=== PATIENT | male | born 1940 | race Caucasian/White ===

== ENCOUNTER 2017-05-31 16:35 | Inpatient (IN) | payer MEDICARE, BC ==
[~2017-05-31] VITALS: Ht 182.9 cm; Wt 100.9 kg
[2017-05-31] MEDS ORDERED: FOLI1TAB6 PO (17:13)
[2017-05-31] MEDS ORDERED: SIMV-8 PO (17:13)
[2017-05-31] MEDS ORDERED: BUME2TAB3 PO (17:13)
[2017-05-31] MEDS ORDERED: POTA10TA51 PO (17:13)
[2017-05-31] MEDS ORDERED: APIX5TAB PO (17:13)
[2017-05-31] MEDS ORDERED: METO2.5T11 PO (17:13)
[2017-05-31] MEDS ORDERED: CARV6.2551 PO (17:13)
[2017-05-31 17:29] LABS: Basophils # (auto) 0 uL; Basophils % (auto) 0.6 % (0.0-2.0); Eosinophils # (auto) 0.3 uL; Eosinophils % (auto) 4.2 % (0.0-7.0); Hematocrit 32.3 % (41.0-53.0); Hemoglobin 10.8 g/dL (13.5-17.5); Lymphocytes # (auto) 1.5 uL; Lymphocytes % (auto) 21.4 % (10.0-50.0); Mean Corpuscular Hemoglobin 32.7 pg (28.0-32.0); Mean Corpuscular Hgb Conc. 33.4 g/dL (32.0-36.0); Mean Corpuscular Volume 97.7 fL (80.0-100.0); Monocytes # (auto) 0.4 uL; Monocytes % (auto) 5.1 % (0.0-12.0); Neutrophils # (auto) 4.8 uL; Neutrophils % (auto) 68.7 % (37.0-80.0); Nucleated Red Blood Cells % 0.1 %; Platelet Count (auto) 156 10^3/uL (140-450); Red Blood Cells 3.31 10^6/uL (4.5-5.90); Red Cell Distribution Width 15.1 % (11.8-14.3)
[2017-05-31] MEDS ORDERED: DOPamine 1600MCG/ML D5W 250 ML IV ONE (17:30)
[2017-05-31 17:35] LABS: Urine Bacteria MANY /hpf (None Seen); Urine Blood 1+ /uL (Negative); Urine Mucus FEW (None Seen); Urine Specific Gravity 1.014 (1.001-1.035); Urine WBC 31 /hpf (0 - 3)
[2017-05-31 17:51] LABS: BUN/Creatinine Ratio 25.9; Magnesium 2.6 mg/dL (1.6-2.6)
[2017-05-31 17:55] LABS: Alcohol, Urine < 3.0 mg/dL (0-5); Amphetamine Screen, Urine NEGATIVE (NEGATIVE); Barbiturate Scree,Urine NEGATIVE (NEGATIVE); Benzodiazephine Screen, Urine NEGATIVE (NEGATIVE); Cannabinoid Screen, Urine NEGATIVE (NEGATIVE); Cocaine Screen, Urine NEGATIVE (NEGATIVE); Lactic Acid w/Reflex 5.5 mmol/L (0.4-2.0); Opiate Scree,Urine NEGATIVE (NEGATIVE); Phencyclidine Screen, Urine NEGATIVE (NEGATIVE)
[2017-05-31 17:56] LABS: Bilirubin, Total 0.7 mg/dL (0.2-1.0); INR 1.15 (0.9-1.15); Prothrombin Time 12.5 sec (9.37-12.3); Total Protein 6.6 g/dL (6.4-8.2)
[2017-05-31 18:01] LABS: Potassium 2.8 mmol/L (3.5-5.1)
[2017-05-31 18:15] VITALS: BP 93/47
[2017-05-31] MEDS: POTASSIUM CHL 20MEQ/50ML 50 ML IV SCH ×2 (18:28→20:26)
[2017-05-31] MEDS ORDERED: NOREPINEPHRINE 8 MG/250ML KIT 250 ML IV ONE (18:42)
[2017-05-31] MEDS: NOREPINEPHRINE 8 MG/250ML KIT 250 ML IV SCH (19:04)
[2017-05-31 20:00] VITALS: BP 111/53
[2017-05-31] MEDS ORDERED: MIDAZOLAM DRIP 50 mg/50mL 50 ML IV ONE (20:09)
[2017-05-31] MEDS: MIDAZOLAM DRIP 50 mg/50mL 50 ML IV SCH (20:20)
[2017-05-31] MEDS ORDERED: cefTRIAXone 1GM/10ml IVPUSH 10 ML IV ONE (21:30)
[2017-05-31] MEDS ORDERED: VANCOMYCIN PER PHARMACY 0 MG IV SCH (21:30)
[2017-05-31] MEDS ORDERED: MORPHINE SULF INJ 2 MG/ML SYRINGE 1ML IV PRN (21:30)
[2017-05-31] MEDS ORDERED: NITROGLYCERIN 0.4 MG SL TAB SL PRN (21:30)
[2017-05-31] MEDS ORDERED: VANCOMYCIN 1GM/250ML 250 ML IV SCH (21:45)
[2017-05-31 22:25] VITALS: BP 112/64
[2017-06-01] VITALS (13 sets, daily range): BP systolic 92–122; BP diastolic 45–71
[2017-06-01] MEDS ORDERED: BUMETANIDE (0.25MG/ML) 4 ML VIAL IV ONE (00:15)
[2017-06-01] MEDS: ACETAMINOPHEN 650 mg PER 20 mL UD GT PRN (01:46)
[2017-06-01 03:57] LABS: Basophils # (auto) 0.1 uL; Basophils % (auto) 0.5 % (0.0-2.0); Eosinophils # (auto) 0 uL; Eosinophils % (auto) 0.2 % (0.0-7.0); Hematocrit 29.4 % (41.0-53.0); Hemoglobin 10.1 g/dL (13.5-17.5); Lymphocytes # (auto) 0.6 uL; Lymphocytes % (auto) 4.5 % (10.0-50.0); Mean Corpuscular Hemoglobin 32.9 pg (28.0-32.0); Mean Corpuscular Hgb Conc. 34.3 g/dL (32.0-36.0); Mean Corpuscular Volume 95.9 fL (80.0-100.0); Monocytes # (auto) 1.6 uL; Monocytes % (auto) 12.3 % (0.0-12.0); Neutrophils # (auto) 10.5 uL; Neutrophils % (auto) 82.5 % (37.0-80.0); Platelet Count (auto) 137 10^3/uL (140-450); Red Blood Cells 3.07 10^6/uL (4.5-5.90); Red Cell Distribution Width 14.9 % (11.8-14.3); White Blood Cell 12.7 10^3/uL (4.4-10.8)
[2017-06-01] MEDS ORDERED: BUMETANIDE (0.25MG/ML) 4 ML VIAL IV SCH ×2 (06:00→10:00)
[2017-06-01 06:38] LABS: BUN/Creatinine Ratio 22.7; Calcium 8.4 mg/dL (8.5-10.1)
[2017-06-01 07:03] LABS: Potassium 2.6 mmol/L (3.5-5.1)
[2017-06-01] MEDS ORDERED: POTASSIUM CHL 10% (20 MEQ/15ML) 15ml ORAL SOLN GT ONE ×2 (07:15→19:00)
[2017-06-01] MEDS ORDERED: ENOXAPARIN SOD 120 MG/0.8 ML SYRINGE SC ONE (07:15)
[2017-06-01] MEDS ORDERED: VANCOMYCIN 1,250 MG in D5W 5% 250 ML IV SCH (09:00)
[2017-06-01] MEDS ORDERED: cefTRIAXone 1GM/10ml IVPUSH 10 ML IV SCH (09:00)
[2017-06-01] MEDS ORDERED: VANCOMYCIN 1,250 MG in D5W 5% 250 ML IV ONE (09:00)
[2017-06-01] MEDS ORDERED: APIXABAN 5 MG TAB PO SCH (10:00)
[2017-06-01] MEDS ORDERED: FUROSEMIDE 100 MG/10ML VIAL IV ONE (12:00)
[2017-06-01] MEDS ORDERED: SPIRONOLACTONE 25 MG TAB PO ONE (12:15)
[2017-06-01] MEDS ORDERED: DOPamine 1600MCG/ML D5W 250 ML IV SCH (14:00)
[2017-06-01] MEDS ORDERED: FUROSEMIDE INJECTION 250 MG in SODIUM CHL 0.9% 225 ML IV SCH (16:00)
[2017-06-01] MEDS ORDERED: HEPARIN SODIUM (PORCINE) 5000 UNITS/ML 1ML VIAL IV ONE (18:00)
[2017-06-01 18:06] LABS: Basophils # (auto) 0.1 uL; Basophils % (auto) 0.5 % (0.0-2.0); Eosinophils # (auto) 0.1 uL; Eosinophils % (auto) 0.5 % (0.0-7.0); Hematocrit 29.9 % (41.0-53.0); Hemoglobin 10.4 g/dL (13.5-17.5); Lymphocytes # (auto) 0.8 uL; Lymphocytes % (auto) 7.3 % (10.0-50.0); Mean Corpuscular Hemoglobin 33.1 pg (28.0-32.0); Mean Corpuscular Hgb Conc. 34.7 g/dL (32.0-36.0); Mean Corpuscular Volume 95.4 fL (80.0-100.0); Monocytes # (auto) 1.3 uL; Monocytes % (auto) 11.3 % (0.0-12.0); Neutrophils % (auto) 80.4 % (37.0-80.0); Nucleated Red Blood Cells % 0.2 %; Platelet Count (auto) 264 10^3/uL (140-450); Red Blood Cells 3.13 10^6/uL (4.5-5.90); Red Cell Distribution Width 15.1 % (11.8-14.3); White Blood Cell 11.1 10^3/uL (4.4-10.8)
[2017-06-01 18:20] LABS: INR 1.27 (0.9-1.15); Partial Thromboplastin Time 34.5 sec (22.64-33.71); Prothrombin Time 13.9 sec (9.37-12.3)
[2017-06-01] MEDS ORDERED: FUROSEMIDE INJECTION 100 MG in D5W 5% 90 ML IV SCH (19:00)
[2017-06-01] MEDS: PIPERACILLIN-TAZOB 2.25GM 50 ML IV SCH (19:13)
[2017-06-01] MEDS: NOREPINEPHRINE 8 MG/250ML KIT 250 ML IV SCH (19:14)
[2017-06-01] MEDS: DOPamine 1600MCG/ML D5W 250 ML IV SCH (19:14)
[2017-06-01 19:45] LABS: Creatinine, Urine 40 mg/dL (30.0-125.0); Sodium Urine 86 mmol/L (40-220)
[2017-06-01] MEDS: HEPARIN DRIP/D5W 100UNITS/ML 250 ML IV SCH (20:00)
[2017-06-01] MEDS: MIDAZOLAM DRIP 50 mg/50mL 50 ML IV SCH (20:38)
[2017-06-01] MEDS: LINEZOLID 600MG/300ML 300 ML IV SCH (22:00)
[2017-06-01] MEDS ORDERED: IBUPROFEN 100MG/5ML ORAL SUSP 100 MG/5 ML UD ONE (22:13)
[2017-06-01] MEDS ORDERED: IBUPROFEN 100MG/5ML ORAL SUSP 100 MG/5 ML UD GT ONE (22:45)
[2017-06-02] VITALS (53 sets, daily range): BP systolic 93–137; BP diastolic 39–72
[2017-06-02 03:43] LABS: Albumin 2.8 g/dL (3.4-5.0); BUN/Creatinine Ratio 21.4; Bilirubin, Total 1.5 mg/dL (0.2-1.0); Calcium 8.1 mg/dL (8.5-10.1); Magnesium 2.4 mg/dL (1.6-2.6); Total Protein 6.2 g/dL (6.4-8.2)
[2017-06-02 03:45] LABS: INR 1.28 (0.9-1.15); Partial Thromboplastin Time 32.1 sec (22.64-33.71)
[2017-06-02 03:46] LABS: Potassium 2.9 mmol/L (3.5-5.1)
[2017-06-02] MEDS ORDERED: HEPARIN SODIUM (PORCINE) 5000 UNITS/ML 1ML VIAL ONE (03:58)
[2017-06-02] MEDS ORDERED: POTASSIUM CHL 10% (20 MEQ/15ML) 15ml ORAL SOLN GT ONE ×2 (04:00→11:30)
[2017-06-02] MEDS: PIPERACILLIN-TAZOB 2.25GM 50 ML IV SCH ×4 (06:00→17:37)
[2017-06-02] MEDS: HEPARIN DRIP/D5W 100UNITS/ML 250 ML IV SCH ×2 (06:30→19:00)
[2017-06-02] MEDS: FUROSEMIDE INJECTION 100 MG in D5W 5% 90 ML IV SCH ×2 (09:55→20:11)
[2017-06-02] MEDS: LINEZOLID 600MG/300ML 300 ML IV SCH ×2 (10:06→22:02)
[2017-06-02] MEDS: ACETAMINOPHEN 650 mg PER 20 mL UD GT PRN ×2 (10:48→22:02)
[2017-06-02 11:36] LABS: Basophils # (auto) 0.1 uL; Basophils % (auto) 0.8 % (0.0-2.0); Eosinophils # (auto) 0.2 uL; Eosinophils % (auto) 1.9 % (0.0-7.0); Hemoglobin 10.3 g/dL (13.5-17.5); Lymphocytes # (auto) 0.9 uL; Lymphocytes % (auto) 8.4 % (10.0-50.0); Mean Corpuscular Hemoglobin 32.9 pg (28.0-32.0); Mean Corpuscular Hgb Conc. 34.4 g/dL (32.0-36.0); Mean Corpuscular Volume 95.5 fL (80.0-100.0); Monocytes # (auto) 1.4 uL; Monocytes % (auto) 13.6 % (0.0-12.0); Neutrophils # (auto) 7.7 uL; Neutrophils % (auto) 75.3 % (37.0-80.0); Nucleated Red Blood Cells % 0.1 %; Red Blood Cells 3.14 10^6/uL (4.5-5.90); Red Cell Distribution Width 15.3 % (11.8-14.3); White Blood Cell 10.2 10^3/uL (4.4-10.8)
[2017-06-02 11:46] LABS: Albumin 2.9 g/dL (3.4-5.0); BUN/Creatinine Ratio 21.1; Bilirubin, Total 1.7 mg/dL (0.2-1.0); Calcium 8.2 mg/dL (8.5-10.1); Potassium 3.3 mmol/L (3.5-5.1); Total Protein 6.3 g/dL (6.4-8.2)
[2017-06-02 11:48] LABS: Platelet Count (auto) 127 10^3/uL (140-450)
[2017-06-02] MEDS ORDERED: DOPamine 1600mCg/ml 400MG/250ml NSorD5 KIT/BAG IV ONE (11:58)
[2017-06-02] MEDS ORDERED: SODIUM BICARBONATE 8.4% INJ 50ML SYRINGE IV ONE (11:58)
[2017-06-02] MEDS ORDERED: EPINEPHrine HCL 1 MG/10 ML SYRG IV ONE (11:58)
[2017-06-02] MEDS ORDERED: PANTOPRAZOLE 40 MG/10 ML VIAL IV ONE (13:45)
[2017-06-02] MEDS: DOPamine 1600MCG/ML D5W 250 ML IV SCH (19:00)
[2017-06-02] MEDS: MIDAZOLAM DRIP 50 mg/50mL 50 ML IV SCH (20:10)
[2017-06-02 21:29] LABS: INR 1.19 (0.9-1.15); Partial Thromboplastin Time 26.2 sec (22.64-33.71)
[2017-06-02 21:31] LABS: Potassium 3.6 mmol/L (3.5-5.1)
[2017-06-02 21:33] LABS: Magnesium 2.2 mg/dL (1.6-2.6)
[2017-06-02 21:48] LABS: Phosphorus 3.7 mg/dL (2.5-4.90)
[2017-06-02] MEDS ORDERED: HEPARIN SODIUM (PORCINE) 5000 UNITS/ML 1ML VIAL IV ONE (22:15)
[2017-06-02] MEDS: NOREPINEPHRINE 8 MG/250ML KIT 250 ML IV SCH (22:36)
[2017-06-03] VITALS (105 sets, daily range): BP systolic 97–143; BP diastolic 39–86
[2017-06-03] MEDS: PIPERACILLIN-TAZOB 2.25GM 50 ML IV SCH ×4 (00:23→18:00)
[2017-06-03 04:09] LABS: Basophils # (auto) 0.1 uL; Basophils % (auto) 0.6 % (0.0-2.0); Eosinophils # (auto) 0.1 uL; Eosinophils % (auto) 1.4 % (0.0-7.0); Hematocrit 27.2 % (41.0-53.0); Hemoglobin 9.4 g/dL (13.5-17.5); Lymphocytes # (auto) 0.9 uL; Lymphocytes % (auto) 9.7 % (10.0-50.0); Mean Corpuscular Hemoglobin 33.2 pg (28.0-32.0); Mean Corpuscular Hgb Conc. 34.7 g/dL (32.0-36.0); Mean Corpuscular Volume 95.7 fL (80.0-100.0); Monocytes # (auto) 1.2 uL; Monocytes % (auto) 13.9 % (0.0-12.0); Neutrophils # (auto) 6.5 uL; Neutrophils % (auto) 74.4 % (37.0-80.0); Platelet Count (auto) 118 10^3/uL (140-450); Red Blood Cells 2.84 10^6/uL (4.5-5.90); Red Cell Distribution Width 14.9 % (11.8-14.3); White Blood Cell 8.8 10^3/uL (4.4-10.8)
[2017-06-03 04:28] LABS: INR 1.25 (0.9-1.15); Prothrombin Time 13.7 sec (9.37-12.3)
[2017-06-03 04:29] LABS: Albumin 2.6 g/dL (3.4-5.0); Potassium 3.4 mmol/L (3.5-5.1)
[2017-06-03 04:34] LABS: Bilirubin, Total 1.5 mg/dL (0.2-1.0)
[2017-06-03 04:39] LABS: Partial Thromboplastin Time 109.1 sec (22.64-33.71)
[2017-06-03] MEDS ORDERED: SODIUM CHLORIDE 0.9% 1,000 ML IV ONE (10:15)
[2017-06-03] MEDS ORDERED: HEPARIN DRIP/D5W 100UNITS/ML 250 ML IV ONE (10:16)
[2017-06-03] MEDS ORDERED: DOPamine 1600MCG/ML D5W 250 ML IV ONE (10:16)
[2017-06-03] MEDS: PANTOPRAZOLE 40 MG/10 ML VIAL IV SCH (10:31)
[2017-06-03] MEDS: HEPARIN DRIP/D5W 100UNITS/ML 250 ML IV SCH ×2 (10:34→20:00)
[2017-06-03] MEDS: LINEZOLID 600MG/300ML 300 ML IV SCH ×2 (11:40→21:39)
[2017-06-03] MEDS ORDERED: POTASSIUM CHL 20 Meq TABLET PO ONE (12:45)
[2017-06-03 12:47] LABS: INR 1.23 (0.9-1.15); Prothrombin Time 13.4 sec (9.37-12.3)
[2017-06-03 12:59] LABS: Partial Thromboplastin Time 72.3 sec (22.64-33.71)
[2017-06-03] MEDS ORDERED: POTASSIUM CHL 10% (20 MEQ/15ML) 15ml ORAL SOLN GT ONE (13:15)
[2017-06-03] MEDS: FUROSEMIDE 40 MG/4 ML VIAL IV SCH ×2 (13:21→18:43)
[2017-06-03] MEDS: MIDAZOLAM DRIP 50 mg/50mL 50 ML IV SCH ×3 (14:37→22:00)
[2017-06-03] MEDS: NOREPINEPHRINE 8 MG/250ML KIT 250 ML IV SCH (18:45)
[2017-06-03 19:02] LABS: INR 1.29 (0.9-1.15); Partial Thromboplastin Time 65.1 sec (22.64-33.71); Prothrombin Time 14.1 sec (9.37-12.3)
[2017-06-04] VITALS (105 sets, daily range): BP systolic 79–164; BP diastolic 36–70
[2017-06-04] MEDS: PIPERACILLIN-TAZOB 2.25GM 50 ML IV SCH ×4 (00:22→18:45)
[2017-06-04 00:49] LABS: Basophils # (auto) 0.1 uL; Basophils % (auto) 1.2 % (0.0-2.0); Eosinophils # (auto) 0.3 uL; Eosinophils % (auto) 4.7 % (0.0-7.0); Hematocrit 26.9 % (41.0-53.0); Hemoglobin 9.3 g/dL (13.5-17.5); Lymphocytes # (auto) 0.9 uL; Lymphocytes % (auto) 13.4 % (10.0-50.0); Mean Corpuscular Hemoglobin 33.5 pg (28.0-32.0); Mean Corpuscular Hgb Conc. 34.4 g/dL (32.0-36.0); Mean Corpuscular Volume 97.2 fL (80.0-100.0); Monocytes % (auto) 15.9 % (0.0-12.0); Neutrophils # (auto) 4.2 uL; Neutrophils % (auto) 64.8 % (37.0-80.0); Platelet Count (auto) 112 10^3/uL (140-450); Red Blood Cells 2.77 10^6/uL (4.5-5.90); Red Cell Distribution Width 15.2 % (11.8-14.3); White Blood Cell 6.4 10^3/uL (4.4-10.8)
[2017-06-04] MEDS: MIDAZOLAM DRIP 50 mg/50mL 50 ML IV SCH ×4 (00:58→23:24)
[2017-06-04 01:02] LABS: INR 1.2 (0.9-1.15); Partial Thromboplastin Time 47.1 sec (22.64-33.71); Prothrombin Time 13.1 sec (9.37-12.3)
[2017-06-04] MEDS: HEPARIN DRIP/D5W 100UNITS/ML 250 ML IV SCH (04:31)
[2017-06-04] MEDS: FUROSEMIDE 40 MG/4 ML VIAL IV SCH ×2 (05:35→18:44)
[2017-06-04 07:18] LABS: INR 1.18 (0.9-1.15); Partial Thromboplastin Time 54.3 sec (22.64-33.71); Prothrombin Time 12.9 sec (9.37-12.3)
[2017-06-04 07:23] LABS: Albumin 2.5 g/dL (3.4-5.0); BUN/Creatinine Ratio 22.3; Bilirubin, Total 1.2 mg/dL (0.2-1.0); Calcium 7.9 mg/dL (8.5-10.1); Potassium 3.5 mmol/L (3.5-5.1); Total Protein 6.1 g/dL (6.4-8.2)
[2017-06-04 09:20] LABS: Basophils # (auto) 0.1 uL; Basophils % (auto) 1.2 % (0.0-2.0); Eosinophils # (auto) 0.4 uL; Eosinophils % (auto) 5.5 % (0.0-7.0); Hematocrit 28.1 % (41.0-53.0); Hemoglobin 9.6 g/dL (13.5-17.5); Lymphocytes % (auto) 14.7 % (10.0-50.0); Mean Corpuscular Hgb Conc. 34.3 g/dL (32.0-36.0); Mean Corpuscular Volume 96.3 fL (80.0-100.0); Monocytes # (auto) 1.1 uL; Monocytes % (auto) 15.8 % (0.0-12.0); Neutrophils # (auto) 4.3 uL; Neutrophils % (auto) 62.8 % (37.0-80.0); Nucleated Red Blood Cells % 0.1 %; Platelet Count (auto) 120 10^3/uL (140-450); Red Blood Cells 2.92 10^6/uL (4.5-5.90); Red Cell Distribution Width 14.8 % (11.8-14.3); White Blood Cell 6.9 10^3/uL (4.4-10.8)
[2017-06-04 09:27] LABS: BUN/Creatinine Ratio 23.1; Calcium 8.2 mg/dL (8.5-10.1); Potassium 3.4 mmol/L (3.5-5.1)
[2017-06-04] MEDS ORDERED: DOPamine 1600MCG/ML D5W 250 ML IV ONE (11:22)
[2017-06-04] MEDS: LINEZOLID 600MG/300ML 300 ML IV SCH ×2 (11:45→21:51)
[2017-06-04] MEDS: PANTOPRAZOLE 40 MG/10 ML VIAL IV SCH (11:45)
[2017-06-04] MEDS ORDERED: D5W 5% 1,000 ML IV ONE (13:30)
[2017-06-04] MEDS ORDERED: LIDOCAINE 1% HCL (LOCAL ANESTH.) INJ 20ML MDV ID ONE (13:45)
[2017-06-04] MEDS: NOREPINEPHRINE 8 MG/250ML KIT 250 ML IV SCH (14:35)
[2017-06-04] MEDS ORDERED: acetaZOLAMIDE SODIUM 500 MG VL IV ONE (16:00)
[2017-06-04 18:22] LABS: INR 1.19 (0.9-1.15); Partial Thromboplastin Time 28.7 sec (22.64-33.71)
[2017-06-04] MEDS: SODIUM CHLOR 0.9% PF (SALINE LOCK) 10ML VIAL IV SCH (21:51)
[2017-06-05] VITALS (93 sets, daily range): BP systolic 86–121; BP diastolic 40–66
[2017-06-05] MEDS: PIPERACILLIN-TAZOB 2.25GM 50 ML IV SCH ×4 (00:29→19:00)
[2017-06-05] MEDS: MIDAZOLAM DRIP 50 mg/50mL 50 ML IV SCH ×2 (04:13→09:42)
[2017-06-05 04:14] LABS: Eosinophils # (auto) 0.3 uL; Hematocrit 23.7 % (41.0-53.0); Hemoglobin 8.1 g/dL (13.5-17.5); Lymphocytes # (auto) 0.7 uL; White Blood Cell 4.8 10^3/uL (4.4-10.8)
[2017-06-05 04:17] LABS: Basophils # (auto) 0.1 uL; Basophils % (auto) 1.2 % (0.0-2.0); Lymphocytes % (auto) 14.8 % (10.0-50.0); Mean Corpuscular Hemoglobin 32.9 pg (28.0-32.0); Mean Corpuscular Hgb Conc. 33.9 g/dL (32.0-36.0); Mean Corpuscular Volume 96.9 fL (80.0-100.0); Monocytes # (auto) 0.6 uL; Monocytes % (auto) 13.1 % (0.0-12.0); Neutrophils % (auto) 63.9 % (37.0-80.0); Nucleated Red Blood Cells % 0.1 %; Platelet Count (auto) 122 10^3/uL (140-450); Red Blood Cells 2.45 10^6/uL (4.5-5.90); Red Cell Distribution Width 14.9 % (11.8-14.3)
[2017-06-05 04:31] LABS: BUN/Creatinine Ratio 21.8; Calcium 7.9 mg/dL (8.5-10.1)
[2017-06-05] MEDS: FUROSEMIDE 40 MG/4 ML VIAL IV SCH ×2 (07:09→18:45)
[2017-06-05] MEDS ORDERED: DEXTROSE 50% SYRINGE 100 ML IV ONE (08:45)
[2017-06-05] MEDS: PANTOPRAZOLE 40 MG/10 ML VIAL IV SCH (09:18)
[2017-06-05] MEDS: POTASSIUM CHL 10% (20 MEQ/15ML) 15ml ORAL SOLN GT SCH (09:19)
[2017-06-05] MEDS: SODIUM CHLOR 0.9% PF (SALINE LOCK) 10ML VIAL IV SCH ×2 (09:19→22:41)
[2017-06-05] MEDS: SOD CHL 0.45% 1,000 ML IV SCH ×2 (09:43→22:42)
[2017-06-05] MEDS: LINEZOLID 600MG/300ML 300 ML IV SCH ×2 (10:10→23:04)
[2017-06-05] MEDS ORDERED: POTASSIUM CHL 10% (20 MEQ/15ML) 15ml ORAL SOLN PO ONE (12:30)
[2017-06-05] MEDS ORDERED: POTASSIUM CHLORIDE 40 MEQ, LIDOCAINE 1% (LOCAL ANESTH.) 4 ML in SODIUM CHL 0.9% 100 ML IV ONE (15:15)
[2017-06-05] MEDS ORDERED: PHENYTOIN IV DILANTIN 1,000 MG in SODIUM CHL 0.9% 250 ML IV ONE (15:30)
[2017-06-05 16:17] LABS: Calcium 7.8 mg/dL (8.5-10.1); Potassium 3.2 mmol/L (3.5-5.1)
[2017-06-05] MEDS: NOREPINEPHRINE 8 MG/250ML KIT 250 ML IV SCH (18:45)
[2017-06-05] MEDS: PHENYTOIN SODIUM 50 MG/ML 2ML VIAL IV SCH (22:41)
[2017-06-05] MEDS: POTASSIUM CHL 20MEQ/50ML 50 ML IV SCH (22:41)
[2017-06-06] VITALS (109 sets, daily range): BP systolic 89–134; BP diastolic 44–66
[2017-06-06] MEDS: PIPERACILLIN-TAZOB 2.25GM 50 ML IV SCH ×5 (00:48→23:31)
[2017-06-06] MEDS: POTASSIUM CHL 20MEQ/50ML 50 ML IV SCH (00:48)
[2017-06-06] MEDS: SOD CHL 0.45% 1,000 ML IV SCH ×2 (05:00→15:00)
[2017-06-06 05:43] LABS: Basophils # (auto) 0.1 uL; Eosinophils # (auto) 0.2 uL; Hematocrit 24.2 % (41.0-53.0); Hemoglobin 8.3 g/dL (13.5-17.5); Lymphocytes # (auto) 0.7 uL; Mean Corpuscular Hgb Conc. 34.5 g/dL (32.0-36.0); Monocytes # (auto) 0.7 uL; Monocytes % (auto) 13.6 % (0.0-12.0); Neutrophils # (auto) 3.7 uL; Red Blood Cells 2.49 10^6/uL (4.5-5.90)
[2017-06-06 05:48] LABS: Basophils % (auto) 1.2 % (0.0-2.0); Eosinophils % (auto) 3.7 % (0.0-7.0); Lymphocytes % (auto) 12.6 % (10.0-50.0); Mean Corpuscular Hemoglobin 33.5 pg (28.0-32.0); Neutrophils % (auto) 68.9 % (37.0-80.0); Platelet Count (auto) 124 10^3/uL (140-450); Red Cell Distribution Width 14.6 % (11.8-14.3); White Blood Cell 5.3 10^3/uL (4.4-10.8)
[2017-06-06] MEDS: FUROSEMIDE 40 MG/4 ML VIAL IV SCH (06:15)
[2017-06-06] MEDS: PHENYTOIN SODIUM 50 MG/ML 2ML VIAL IV SCH ×3 (06:15→21:37)
[2017-06-06 06:16] LABS: Albumin 2.4 g/dL (3.4-5.0); BUN/Creatinine Ratio 19.7; Calcium 8.1 mg/dL (8.5-10.1); Potassium 3.9 mmol/L (3.5-5.1)
[2017-06-06 06:18] LABS: Bilirubin, Total 1.2 mg/dL (0.2-1.0); Total Protein 5.9 g/dL (6.4-8.2)
[2017-06-06] MEDS: MIDAZOLAM DRIP 50 mg/50mL 50 ML IV SCH ×3 (07:58→17:16)
[2017-06-06] MEDS: SODIUM CHLOR 0.9% PF (SALINE LOCK) 10ML VIAL IV SCH ×2 (09:58→21:37)
[2017-06-06] MEDS: PANTOPRAZOLE 40 MG/10 ML VIAL IV SCH (09:58)
[2017-06-06] MEDS: POTASSIUM CHL 10% (20 MEQ/15ML) 15ml ORAL SOLN GT SCH (09:58)
[2017-06-06] MEDS: LINEZOLID 600MG/300ML 300 ML IV SCH ×2 (10:00→21:37)
[2017-06-06] MEDS: NOREPINEPHRINE 8 MG/250ML KIT 250 ML IV SCH (17:07)
[2017-06-07] VITALS (105 sets, daily range): BP systolic 95–141; BP diastolic 41–71
[2017-06-07 05:20] LABS: Basophils # (auto) 0 uL; Basophils % (auto) 0.6 % (0.0-2.0); Eosinophils # (auto) 0.2 uL; Eosinophils % (auto) 2.9 % (0.0-7.0); Hematocrit 24.8 % (41.0-53.0); Hemoglobin 8.4 g/dL (13.5-17.5); Lymphocytes # (auto) 0.7 uL; Lymphocytes % (auto) 10.1 % (10.0-50.0); Mean Corpuscular Hemoglobin 32.7 pg (28.0-32.0); Mean Corpuscular Hgb Conc. 33.7 g/dL (32.0-36.0); Monocytes # (auto) 0.7 uL; Monocytes % (auto) 10.5 % (0.0-12.0); Neutrophils # (auto) 5.3 uL; Neutrophils % (auto) 75.9 % (37.0-80.0); Nucleated Red Blood Cells % 0.1 %; Platelet Count (auto) 118 10^3/uL (140-450); Red Blood Cells 2.55 10^6/uL (4.5-5.90); Red Cell Distribution Width 14.9 % (11.8-14.3)
[2017-06-07] MEDS: PIPERACILLIN-TAZOB 2.25GM 50 ML IV SCH ×4 (05:28→23:41)
[2017-06-07] MEDS: PHENYTOIN SODIUM 50 MG/ML 2ML VIAL IV SCH ×3 (05:28→21:21)
[2017-06-07] MEDS: SOD CHL 0.45% 1,000 ML IV SCH ×2 (05:28→10:01)
[2017-06-07 07:06] LABS: Albumin 2.5 g/dL (3.4-5.0); BUN/Creatinine Ratio 19.9; Bilirubin, Total 1.2 mg/dL (0.2-1.0); Calcium 7.9 mg/dL (8.5-10.1); Potassium 3.3 mmol/L (3.5-5.1); Total Protein 5.9 g/dL (6.4-8.2)
[2017-06-07] MEDS: LINEZOLID 600MG/300ML 300 ML IV SCH ×2 (09:59→21:21)
[2017-06-07] MEDS: SODIUM CHLOR 0.9% PF (SALINE LOCK) 10ML VIAL IV SCH ×2 (10:00→21:21)
[2017-06-07] MEDS: POTASSIUM CHL 10% (20 MEQ/15ML) 15ml ORAL SOLN GT SCH (10:01)
[2017-06-07] MEDS: PANTOPRAZOLE 40 MG/10 ML VIAL IV SCH (10:01)
[2017-06-07] MEDS ORDERED: POTASSIUM CHL 10% (20 MEQ/15ML) 15ml ORAL SOLN GT ONE (11:45)
[2017-06-07] MEDS: NOREPINEPHRINE 8 MG/250ML KIT 250 ML IV SCH (13:03)
[2017-06-07] MEDS: MIDAZOLAM DRIP 50 mg/50mL 50 ML IV SCH ×2 (13:04→22:45)
[2017-06-07] MEDS ORDERED: Fibersource Hn 1 Liter GT SCH (18:00)
[2017-06-08] VITALS (72 sets, daily range): BP systolic 95–133; BP diastolic 34–75
[2017-06-08] MEDS: SOD CHL 0.45% 1,000 ML IV SCH ×3 (00:42→11:00)
[2017-06-08] MEDS: MIDAZOLAM DRIP 50 mg/50mL 50 ML IV SCH ×2 (03:50→12:37)
[2017-06-08 04:35] LABS: Basophils # (auto) 0 uL; Basophils % (auto) 0.7 % (0.0-2.0); Eosinophils # (auto) 0.1 uL; Eosinophils % (auto) 2.4 % (0.0-7.0); Hematocrit 24.5 % (41.0-53.0); Hemoglobin 8.3 g/dL (13.5-17.5); Lymphocytes # (auto) 0.5 uL; Lymphocytes % (auto) 8.6 % (10.0-50.0); Mean Corpuscular Hgb Conc. 33.8 g/dL (32.0-36.0); Mean Corpuscular Volume 97.8 fL (80.0-100.0); Monocytes # (auto) 0.6 uL; Monocytes % (auto) 10.7 % (0.0-12.0); Neutrophils # (auto) 4.2 uL; Neutrophils % (auto) 77.6 % (37.0-80.0); Platelet Count (auto) 108 10^3/uL (140-450); Red Cell Distribution Width 14.9 % (11.8-14.3); White Blood Cell 5.4 10^3/uL (4.4-10.8)
[2017-06-08 04:58] LABS: Albumin 2.3 g/dL (3.4-5.0); BUN/Creatinine Ratio 22.5; Bilirubin, Total 0.9 mg/dL (0.2-1.0); Calcium 7.9 mg/dL (8.5-10.1); Potassium 3.5 mmol/L (3.5-5.1); Total Protein 5.8 g/dL (6.4-8.2)
[2017-06-08] MEDS: PIPERACILLIN-TAZOB 2.25GM 50 ML IV SCH ×3 (06:10→18:00)
[2017-06-08] MEDS: PHENYTOIN SODIUM 50 MG/ML 2ML VIAL IV SCH ×2 (06:10→14:12)
[2017-06-08] MEDS: LINEZOLID 600MG/300ML 300 ML IV SCH (10:15)
[2017-06-08] MEDS: PANTOPRAZOLE 40 MG/10 ML VIAL IV SCH (10:15)
[2017-06-08] MEDS: POTASSIUM CHL 10% (20 MEQ/15ML) 15ml ORAL SOLN GT SCH (10:15)
[2017-06-08] MEDS: SODIUM CHLOR 0.9% PF (SALINE LOCK) 10ML VIAL IV SCH ×2 (10:15→22:00)
[2017-06-08] MEDS ORDERED: LORazepam 2MG/ML-1ML VIAL ONE (15:24)
[2017-06-08] MEDS: LORazepam 2MG/ML-1ML VIAL IV PRN ×3 (15:25→23:34)
[2017-06-08] MEDS: HYDROmorphone HCL 2 MG/ML VL IV PRN (18:06)
[2017-06-09] MEDS: HYDROmorphone HCL 2 MG/ML VL IV PRN ×7 (01:10→18:03)
[2017-06-09] MEDS: LORazepam 2MG/ML-1ML VIAL IV PRN ×6 (03:45→22:16)
[2017-06-09 05:00] VITALS: BP 131/68
[2017-06-09 06:25] LABS: Basophils # (auto) 0.1 uL; Basophils % (auto) 0.8 % (0.0-2.0); Eosinophils # (auto) 0.2 uL; Eosinophils % (auto) 2.3 % (0.0-7.0); Hematocrit 27.6 % (41.0-53.0); Hemoglobin 9.3 g/dL (13.5-17.5); Lymphocytes # (auto) 0.8 uL; Lymphocytes % (auto) 9.6 % (10.0-50.0); Mean Corpuscular Hemoglobin 33.1 pg (28.0-32.0); Mean Corpuscular Hgb Conc. 33.8 g/dL (32.0-36.0); Mean Corpuscular Volume 98.1 fL (80.0-100.0); Monocytes # (auto) 0.8 uL; Monocytes % (auto) 9.9 % (0.0-12.0); Neutrophils # (auto) 6.3 uL; Neutrophils % (auto) 77.4 % (37.0-80.0); Nucleated Red Blood Cells % 0.1 %; Platelet Count (auto) 152 10^3/uL (140-450); Red Blood Cells 2.81 10^6/uL (4.5-5.90); Red Cell Distribution Width 15.1 % (11.8-14.3); White Blood Cell 8.1 10^3/uL (4.4-10.8)
[2017-06-09 06:45] LABS: BUN/Creatinine Ratio 24.2; Calcium 8.7 mg/dL (8.5-10.1); Potassium 3.8 mmol/L (3.5-5.1)
[2017-06-09 07:52] VITALS: BP 115/51
[2017-06-09] MEDS: SODIUM CHLOR 0.9% PF (SALINE LOCK) 10ML VIAL IV SCH ×2 (09:52→23:51)
[2017-06-09 11:50] VITALS: BP 119/54
[2017-06-09 16:56] VITALS: BP 118/54
[2017-06-09 22:00] VITALS: BP 131/75
[2017-06-10] MEDS ORDERED: ACETAMINOPHEN 650 MG RECT SUPP PR ONE ×2 (00:15→00:25)
[2017-06-10 05:00] VITALS: BP 137/65
[2017-06-10] MEDS: LORazepam 2MG/ML-1ML VIAL IV PRN ×6 (05:04→23:32)
[2017-06-10] MEDS: HYDROmorphone HCL 2 MG/ML VL IV PRN ×8 (06:43→23:52)
[2017-06-10 08:47] VITALS: BP 121/55
[2017-06-10] MEDS: SODIUM CHLOR 0.9% PF (SALINE LOCK) 10ML VIAL IV SCH ×4 (10:00→23:31)
[2017-06-10 12:59] VITALS: BP 104/48
[2017-06-10] MEDS ORDERED: ACETAMINOPHEN 650 MG RECT SUPP PR PRN (14:45)
[2017-06-10 16:55] VITALS: BP 109/47
[2017-06-10 22:00] VITALS: BP 122/60
[2017-06-11] MEDS: SODIUM CHLOR 0.9% PF (SALINE LOCK) 10ML VIAL IV SCH ×2 (01:04→05:14)
[2017-06-11] MEDS: LORazepam 2MG/ML-1ML VIAL IV PRN ×9 (01:34→23:15)
[2017-06-11] MEDS: HYDROmorphone HCL 2 MG/ML VL IV PRN ×5 (02:00→23:35)
[2017-06-11 09:08] VITALS: BP 106/50
[2017-06-11] MEDS ORDERED: LORazepam 2MG/ML-1ML VIAL IV PRN (14:30)
[2017-06-11 14:45] VITALS: BP 109/54
[2017-06-11 16:50] VITALS: BP 115/56
[2017-06-11 22:04] VITALS: BP 113/46
[2017-06-12] MEDS: HYDROmorphone HCL 2 MG/ML VL IV PRN (03:00)
== END 2017-06-12 05:03 | disposition expired | DRG 870 ==
LOC: EDUNIT# 16:35 → ER 16:43 → TELE 16:44 → ICU WEST 06-02 12:16 → EAST 06-08 20:10
PROVIDERS: ADMIT Nurse Practitioner Family; ATTEND Internal Medicine Pulmonary Disease
PROC: 5A1955Z Respiratory Ventilation, Greater than 96 Consecutive Hours (ICD-10-PCS; principal; 2017-05-31)
PROC: 0BH17EZ Insertion of Endotracheal Airway into Trachea, Via Natural or Artificial Opening (ICD-10-PCS; 2017-05-31)
PROC: 5A12012 Performance of Cardiac Output, Single, Manual (ICD-10-PCS; 2017-05-31)
PROC: 0W9B3ZZ Drainage of Left Pleural Cavity, Percutaneous Approach (ICD-10-PCS; 2017-06-04)
PROC: 02HV33Z Insertion of Infusion Device into Superior Vena Cava, Percutaneous Approach (ICD-10-PCS; 2017-06-04)
DX: A41.9 Sepsis, unspecified organism (principal); I21.4 Non-ST elevation (NSTEMI) myocardial infarction; E43 Unspecified severe protein-calorie malnutrition; J96.01 Acute respiratory failure with hypoxia; I46.9 Cardiac arrest, cause unspecified; J69.0 Pneumonitis due to inhalation of food and vomit; N17.0 Acute kidney failure with tubular necrosis; G93.1 Anoxic brain damage, not elsewhere classified; R40.20 Unspecified coma; I50.43 Acute on chronic combined systolic (congestive) and diastolic (congestive) heart failure; E87.3 Alkalosis; E44.1 Mild protein-calorie malnutrition; N39.0 Urinary tract infection, site not specified; E87.0 Hyperosmolality and hypernatremia; I13.0 Hypertensive heart and chronic kidney disease with heart failure and stage 1 through stage 4 chronic kidney disease, or unspecified chronic kidney disease; I47.2 Ventricular tachycardia; Z66 Do not resuscitate; Z51.5 Encounter for palliative care; I48.0 Paroxysmal atrial fibrillation; G25.3 Myoclonus; D63.8 Anemia in other chronic diseases classified elsewhere; E03.9 Hypothyroidism, unspecified; E66.9 Obesity, unspecified; E78.5 Hyperlipidemia, unspecified; E87.6 Hypokalemia; I45.10 Unspecified right bundle-branch block; I48.2 Chronic atrial fibrillation; I49.5 Sick sinus syndrome; N18.9 Chronic kidney disease, unspecified; Z79.01 Long term (current) use of anticoagulants; Z79.899 Other long term (current) drug therapy; Z82.3 Family history of stroke; Z86.73 Personal history of transient ischemic attack (TIA), and cerebral infarction without residual deficits; Z95.0 Presence of cardiac pacemaker; Z68.30 Body mass index [BMI] 30.0-30.9, adult; Z88.8 Allergy status to other drugs, medicaments and biological substances; N18.3 Chronic kidney disease, stage 3 (moderate)
CPT/HCPCS: 10030; 32555; 36415; 36569; 36600; 51702; 70450; 71010; 76604; 76775; 76942; 80048; 80053; 80061; 80185; 80307; 81001; 82570; 82805; 83036; 83605; 83735; 83880; 83986; 84100; 84132; 84300; 84443; 84484; 85025; 85379; 85610; 85730; 87040; 87070; 87081; 87086; 87205; 89051; 92950; 93005; 93306; 93970; 94002; 94003; 95819; 96365; 96366; 96375; 99291; C9113; J2001; J2250; J2543; J7060